=== PATIENT | female | born 1980 | race Caucasian/White ===

== ENCOUNTER → 2016-09-19 | Outpatient (CLI) | payer OTHER ==
--- NOTE | 2016-09-19 10:04 | KCIC ---
MR of the left mid foot HISTORY: Foot pain for 2 weeks. Plantar pain. Lateral swelling. FINDINGS: Lisfranc ligament complex is intact as is tarsometatarsal alignment. Visualized tendons are intact. No significant tendon sheath fluid. There is marrow edema within the anterior calcaneus, partially visualized on most sequences. However, an additional sagittal sequence was obtained inclusive of the entire calcaneus demonstrating diffuse marrow edema, greatest at the tuberosity, as well as an incomplete nondisplaced fracture line at the postprocedure tuberosity. Small tibiotalar joint effusion and small effusion in the posterior subtalar joint. Tarsal sinus is grossly intact. IMPRESSION: Findings are compatible with a nondisplaced posttraumatic fracture of the calcaneus. This could be related to repetitive stress injury or more acute macro trauma. Electronically signed by: Angel Vasquez MD (09/19/2016 10:01 AM) [email or web address]
--- NOTE | 2016-09-19 10:10 | KCIC ---
MR of the right mid foot HISTORY: Foot pain for 2 weeks, plantar aspect. Lateral swelling. TECHNIQUE: Routine multiplanar sequences are obtained. FINDINGS: Acute bone marrow edema within the cuboid, greatest distally. There may be a subtle nondisplaced subchondral fracture at the distal cuboid. No other fracture or aggressive bone destruction identified. No significant joint effusion. Tarsal sinus intact. Visualized tendons are intact. Lisfranc ligament complex is intact as is tarsometatarsal alignment. No acute plantar fasciitis. Trace fluid in the tibiotalar and posterior subtalar joint. IMPRESSION: Acute marrow edema or contusion at the distal cuboid bone with a possible nondisplaced subchondral posttraumatic fracture. This could be related to macro trauma or repetitive stress injury. Electronically signed by: Angel Vasquez MD (09/19/2016 10:07 AM) [email or web address]
== END | disposition home or self-care (01) ==
LOC: KCIC MRI 07:52
PROVIDERS: ATTEND Physician Assistant
DX: S92.001A Unspecified fracture of right calcaneus, initial encounter for closed fracture (principal); S92.002A Unspecified fracture of left calcaneus, initial encounter for closed fracture; X58.XXXA Exposure to other specified factors, initial encounter; Y93.89 Activity, other specified; Y92.89 Other specified places as the place of occurrence of the external cause; Y99.8 Other external cause status
CPT/HCPCS: 73718